=== PATIENT | female | born 1945 | race Caucasian/White ===

== ENCOUNTER 2022-03-31 05:07 | Observation (INO) | payer MEDICARE, OTHER ==
[2022-03-31 05:49] LABS: #Basophils 0.1 thou/uL (0.0-0.2); #Monocytes 0.7 thou/uL (0.11-0.59); #Neutrophils 7.3 thou/uL (1.40-6.50); %Basophils 0.6 % (0.0-1.0); %Eosinophils 0.2 % (0.0-10.0); %Lymphocytes 11.3 % (21.0-51.0); %Monocytes 7.5 % (0.0-10.0); %Neutrophils 80.4 % (42.0-75.0); Mean Corpuscular Hemoglobin 34.8 pg (27.0-31.0); Mean Platelet Volume 6.8 fL (7.4-10.4); Platelet Count 248 thou/uL (130-400); RBC Distribution Width 11.4 % (11.5-14.5); Red Blood Cell (RBC) Count 3.73 mill/uL (4.20-5.40)
[2022-03-31 06:08] LABS: ALT (SGPT) 14 U/L (8-55); AST (SGOT) 21 U/L (5-34); Albumin 4.2 g/dL (3.4-4.8); Alkaline Phosphatase 84 U/L (40-110); Anion Gap 13 mmol/L (10-20); BUN (Urea Nitrogen) 14 mg/dL (9.8-20.1); Bilirubin, Total 0.3 mg/dL (0.2-1.2); Calc. Creatinine Clearance 0 mL/min (70-130); Calcium 9.5 mg/dL (7.8-10.44); Carbon Dioxide 25 mmol/L (23-31); Chloride 102 mmol/L (98-107); Globulin 2.7 g/dL (2.4-3.5); Glucose 129 mg/dL (83-110); Potassium 4.7 mmol/L (3.5-5.1); Protein, Total 6.9 g/dL (5.8-8.1); Sodium 135 mmol/L (136-145)
[2022-03-31 06:43] LABS: Bilirubin Negative (Negative); Blood, Urine Negative (Negative); Clarity Clear (Clear); Glucose, Urine (Dipstick) Normal (Negative); Ketone, Urine Trace mg/dL (Negative); Leukocyte Negative Leu/uL (Negative); Nitrite Negative (Negative); Protein, Urine (Dipstick) Negative (Neg-Trace); Specific Gravity, Urine 1.014 (1.002-1.036); Urobilinogen Normal mg/dL (Less than 2)
[2022-03-31] MEDS ORDERED: Calcium Carbonate 500 MG ChewTAB PO PRN (09:19)
[2022-03-31] MEDS ORDERED: Ondansetron PF 4 MG/2 ML Vial IVP PRN (09:19)
[2022-03-31] MEDS ORDERED: Senokot S 8.6-50 MG TAB PO PRN (09:19)
[2022-03-31] MEDS ORDERED: Acetaminophen 325 MG TAB PO PRN (09:19)
[2022-03-31] MEDS ORDERED: Acetaminophen 650 MG Suppository PR PRN (09:19)
[2022-03-31] MEDS ORDERED: Ondansetron ODT 4 MG TAB PO PRN (09:19)
[2022-03-31] MEDS ORDERED: Labetalol HCl 100 MG/20 ML VIAL SLOW IVP PRN ×2 (09:23→09:43)
[2022-03-31 09:31] LABS: Troponin I Less than 0.010 ng/mL (< 0.028)
[2022-03-31 09:34] LABS: Magnesium 1.8 mg/dL (1.6-2.6)
[2022-03-31] MEDS ORDERED: Magnesium 2 GM/50 ML(in water) 2 GM in Premix Bag 1 BAG IVPB SCH (09:45)
[2022-03-31] MEDS ORDERED: Lorazepam 1 MG TAB PO SCH (09:45)
[2022-03-31] MEDS ORDERED: Metoprolol Tartrate 50 MG TAB PO SCH (09:45)
[2022-03-31] MEDS ORDERED: Lorazepam 2 MG/ML VIAL ONE (11:17)
[2022-03-31 13:12] LABS: Troponin I Less than 0.010 ng/mL (< 0.028)
[2022-03-31 13:16] VITALS: BMI 21.8
[2022-03-31 18:07] LABS: SARS-CoV-2 PCR by NAA Not Detected (NotDetected)
[2022-03-31] MEDS: Metoprolol Tartrate 50 MG TAB PO SCH (20:55)
[2022-03-31] MEDS ORDERED: Atorvastatin Calcium 40 MG TAB PO SCH (21:00)
[2022-04-01 05:35] LABS: Anion Gap 9 mmol/L (10-20); BUN (Urea Nitrogen) 9 mg/dL (9.8-20.1); Calc. Creatinine Clearance 68 mL/min (70-130); Calcium 8.7 mg/dL (7.8-10.44); Carbon Dioxide 29 mmol/L (23-31); Cardiac Risk 1.7 (Less than 4.5); Chloride 105 mmol/L (98-107); Cholesterol 170 mg/dl (< 200 Desired); Glucose 117 mg/dL (83-110); HDL Cholesterol 102 mg/dL (>60 Neg Risk); LDL Cholesterol, Calculated 62 mg/dL; Potassium 3.8 mmol/L (3.5-5.1); Sodium 139 mmol/L (136-145); Triglycerides 32 mg/dL (Less than 150)
[2022-04-01] MEDS ORDERED: Aspirin 325 mg Enteric Coated Tablet PO SCH (09:00)
[2022-04-01] MEDS ORDERED: Folic Acid/Vit B Comp W-C PO SCH (09:00)
[2022-04-01] MEDS ORDERED: Trospium 20 MG TAB PO SCH (09:00)
[2022-04-01] MEDS ORDERED: Enoxaparin Sodium 30 MG/0.3 ML SYRINGE SC SCH (09:00)
[2022-04-01] MEDS ORDERED: Multivit, Therapeutic 1 TAB PO SCH (09:00)
[2022-04-01] MEDS: Metoprolol Tartrate 50 MG TAB PO SCH (10:13)
[2022-04-01 15:46] VITALS: BP 156/97; TEMP 97.7
== END 2022-04-01 16:11 | disposition home or self-care (01) ==
LOC: ERS 05:07 → ERHOLD 08:39 → NEURO 12:09
PROVIDERS: ADMIT Internal Medicine; ATTEND Internal Medicine
DX: G45.9 Transient cerebral ischemic attack, unspecified (principal); I12.9 Hypertensive chronic kidney disease with stage 1 through stage 4 chronic kidney disease, or unspecified chronic kidney disease; N18.2 Chronic kidney disease, stage 2 (mild); E78.5 Hyperlipidemia, unspecified; E83.42 Hypomagnesemia; E87.1 Hypo-osmolality and hyponatremia; I08.3 Combined rheumatic disorders of mitral, aortic and tricuspid valves; R00.2 Palpitations; K21.9 Gastro-esophageal reflux disease without esophagitis; Z79.82 Long term (current) use of aspirin; Z79.899 Other long term (current) drug therapy; Z88.0 Allergy status to penicillin; Z88.1 Allergy status to other antibiotic agents; Z88.2 Allergy status to sulfonamides; Z91.013 Allergy to seafood; Z20.822 Contact with and (suspected) exposure to COVID-19
CPT/HCPCS: 36415; 70450; 70551; 71045; 80048; 80053; 80061; 81003; 82607; 82746; 83735; 84443; 84484; 85025; 93005; 93306; 93880; 95712; 95819; 95957; 96374; 96375; G0378; J2060; J3475; U0003; U0005

== ENCOUNTER 2022-05-12 08:30 | Outpatient (CLI) | payer MEDICARE, OTHER ==
[2022-05-12 11:26] LABS: Estimated GFR-MDRD - POC Greater than 90
== END 2022-05-12 08:31 | disposition home or self-care (01) ==
LOC: CT 08:30
PROVIDERS: ATTEND Specialist
DX: K44.9 Diaphragmatic hernia without obstruction or gangrene (principal); N20.0 Calculus of kidney; K57.30 Diverticulosis of large intestine without perforation or abscess without bleeding; K22.89 Other specified disease of esophagus; Z98.890 Other specified postprocedural states
CPT/HCPCS: 71260; 74177; 82565

== ENCOUNTER 2022-05-12 09:51 | Outpatient (CLI) | payer MEDICARE, OTHER | END 2022-05-12 09:52 | disposition home or self-care (01) | LOC: LABBT 09:51 | PROVIDERS: ATTEND Specialist | DX: K44.9 Diaphragmatic hernia without obstruction or gangrene (principal); Z20.822 Contact with and (suspected) exposure to COVID-19; N20.0 Calculus of kidney; K57.30 Diverticulosis of large intestine without perforation or abscess without bleeding; K22.89 Other specified disease of esophagus; Z98.890 Other specified postprocedural states | CPT/HCPCS: 71260; 74177; 82565; U0003; U0005 ==

== ENCOUNTER 2022-05-17 10:06 | Outpatient (CLI) | payer MEDICARE, OTHER | END 2022-05-17 10:07 | disposition home or self-care (01) | LOC: RAD 10:06 | PROVIDERS: ATTEND Specialist | DX: K44.9 Diaphragmatic hernia without obstruction or gangrene (principal); K57.10 Diverticulosis of small intestine without perforation or abscess without bleeding; Z98.890 Other specified postprocedural states | CPT/HCPCS: 74240 ==

== ENCOUNTER 2022-10-05 07:52 | Day surgery (SDC) | payer MEDICARE, OTHER ==
[2022-10-01 13:57] VITALS: BMI 20.9
[2022-10-05] MEDS ORDERED: Lidocaine 1% PF 5 ML VIAL ONE (11:32)
[2022-10-05] MEDS ORDERED: PROPOFOL 20 ML ONE (11:32)
== END 2022-10-05 13:10 | disposition home or self-care (01) ==
LOC: SDC 07:52
PROVIDERS: ATTEND Internal Medicine Cardiovascular Disease
PROC: B246ZZ4 Ultrasonography of Right and Left Heart, Transesophageal (ICD-10-PCS; principal; 2022-10-05)
DX: I48.0 Paroxysmal atrial fibrillation (principal); I34.0 Nonrheumatic mitral (valve) insufficiency; Z79.01 Long term (current) use of anticoagulants; Z79.899 Other long term (current) drug therapy; Z88.0 Allergy status to penicillin; Z88.1 Allergy status to other antibiotic agents; Z88.2 Allergy status to sulfonamides; Z88.8 Allergy status to other drugs, medicaments and biological substances; Z91.013 Allergy to seafood; Z91.048 Other nonmedicinal substance allergy status; Z95.818 Presence of other cardiac implants and grafts
CPT/HCPCS: 93312; J2704